=== PATIENT | female | born 1945 | race Caucasian/White ===

== ENCOUNTER 2019-09-26 12:56 | Inpatient (IN) | payer OTHER ==
[~2019-09-26] VITALS: Ht 152.4 cm; Wt 113.6 kg
[~2019-09-26 12:56] MED LIST: ACETAMINOPHEN325 M1 PO; ADVAIR HFA 115-12 GM IH; ALEVE220 MG PO; ASPIR 8181 MG PO; ASPIRIN325 PO; AUGMENTIN 875875 MG PO; CARDURA1 MG PO; CENTANY30 GM TP; CITRATE OF MAG296 ML PO; COLACE 100 MG100 MG PO; COLACE100 MG PO; COUMADIN 5 MG TA5 M1 PO; ENOXAPARIN30 MG/0.3 SQ; ENOXAPARIN40 MG/0.1 SUBQ; FIBER625 MG PO; FIBERCON625 M1 PO; GLUCOSAMINE &1 EAC1 PO; LASIX 20 MG TAB20 MG PO; LIPITOR40 MG PO; LOVENOX40 MG/0.4 SUBQ; MAGNESIUM CITR296 ML PO; METAMUCIL1 EAC1 PO; MILK OF MA2400 MG/10 PO; MOM PO; MULTI VITAMIN1 EACH PO; NEXIUM20 MG PO; NORCO 5-325 TA1 EACH PO; Nexium PO; OXYCODONE HCL 55 MG PO; PRAVACHOL40 MG PO; PRILOSEC40 MG PO; PROAIR HFA8.5 GM IH; PROAIR HFA8.5 GM INH; PROTONIX40 M2 PO; ROBAXIN 750 MG750 M1 PO; SENOKOT-S TABL1 EACH PO; TESSALON PERLE100 MG PO; ULTRAM 50MG TAB50 MG PO; VANCOMYCIN1 GM/250 M IV; VITAMIN C500 M1 PO; ZESTRIL10 MG PO; ZESTRIL40 MG PO; ZOFRAN ODT4 MG PO; ZOFRAN4 MG PO
[2019-09-26 13:05] VITALS: BP 118/101
[2019-09-26] MEDS ORDERED: DILTIAZEM ER180 M2 PO (13:14)
[2019-09-26] MEDS ORDERED: FUROSEMIDE 40 M40 MG PO (13:15)
[2019-09-26 13:32] LABS: ABSOLUTE BASOPHILS 0.1 thou/uL (0.0-0.2); ABSOLUTE EOSINOPHILS 0.3 thou/uL (0.0-0.7); ABSOLUTE LYMPHOCYTES 1.6 thou/uL (0.8-5.3); ABSOLUTE MONOCYTES 0.9 thou/uL (0.0-1.2); ABSOLUTE NEUTROPHILS 6.2 thou/uL (1.6-8.1); BASOPHILS 1.2 %; HEMATOCRIT 36.3 % (37.0-47.0); LYMPHOCYTES 17.3 %; MCH 28.3 pg (26.0-34.0); MCHC 33.1 g/dL (28.0-37.0); MCV 85.8 fL (80.0-100.0); MONOCYTES 9.5 %; MPV 8.5 fl. (7.2-11.1); NUCLEATED RBCS 0 /100WBC; PLATELET COUNT* 284 thou/uL (150-400); RBC 4.23 mil/uL (4.20-5.00); RDW-CV 13.5 % (10.5-14.5)
[2019-09-26 13:40] LABS: CALCIUM 8.9 mg/dL (8.5-10.1); CREATININE 1.5 mg/dL (0.6-1.3); POTASSIUM 4.9 mmol/L (3.5-5.1)
[2019-09-26 13:42] LABS: APTT 25.7 Seconds (25.0-31.3); INR 1.2; PROTIME 11.8 Seconds (9.20-11.50)
[2019-09-26 13:52] LABS: ALBUMIN 3.5 g/dL (3.4-5.0); TOTAL BILIRUBIN 0.4 mg/dL (<0.1-1.0); TOTAL PROTEIN 7.3 g/dL (6.4-8.2)
[2019-09-26 15:43] LABS: URINE BILIRUBIN NEGATIVE (Negative); URINE BLOOD NEGATIVE (Negative); URINE CLARITY CLEAR; URINE COLOR YELLOW; URINE GLUCOSE-RANDOM NEGATIVE (Negative); URINE KETONES NEGATIVE (Negative); URINE LEUKOCYTES-REFLEX NEGATIVE (Negative); URINE NITRITE-REFLEX NEGATIVE (Negative); URINE PROTEIN NEGATIVE (Negative); URINE SPECIFIC GRAVITY <= 1.005 (1.005-1.030); URINE UROBILINOGEN 0.2 E.U./dl (0.2-1.0)
[2019-09-26 21:00] VITALS: BP 139/90
[2019-09-26 21:04] VITALS: BP 133/94
[2019-09-26 23:00] VITALS: BP 114/61
[2019-09-27] VITALS: BP 114/61
[2019-09-27 04:00] VITALS: BP 109/53
[2019-09-27 05:24] LABS: HEMATOCRIT 32.9 % (37.0-47.0); MCH 28.3 pg (26.0-34.0); MCHC 33.4 g/dL (28.0-37.0); MCV 84.7 fL (80.0-100.0); MPV 8.3 fl. (7.2-11.1); NUCLEATED RBCS 0 /100WBC; PLATELET COUNT* 255 thou/uL (150-400); RBC 3.89 mil/uL (4.20-5.00); RDW-CV 13.6 % (10.5-14.5); WBC 8.3 thou/uL (4.0-11.0)
[2019-09-27 06:01] LABS: ANION GAP 10 mmol/L (7-16); BUN 29 mg/dL (7-18); CALCIUM 8.7 mg/dL (8.5-10.1); CHLORIDE 100 mmol/L (98-107); CO2 27 mmol/L (21-32); CREATININE 1.7 mg/dL (0.6-1.3); GLUCOSE 178 mg/dL (70-99); NT-PRO BRAIN NAT PEPTIDE 3623 pg/mL (<300); POTASSIUM 4.4 mmol/L (3.5-5.1); SODIUM 137 mmol/L (136-145); TROPONIN-I LEVEL <0.06 ng/mL (<0.06)
[2019-09-27 06:43] LABS: ABSOLUTE LYMPHOCYTES 0.3 thou/uL (0.8-5.3); ABSOLUTE MONOCYTES 0.1 thou/uL (0.0-1.2); ABSOLUTE NEUTROPHILS 7.9 thou/uL (1.6-8.1); ANISOCYTOSIS 1+; OVALOCYTES Occasional; PLATELET ESTIMATE ADEQUATE; POIKILOCYTOSIS 1+
[2019-09-27 08:00] VITALS: BP 130/70
[2019-09-27 09:23] VITALS: BP 130/70
--- NOTE | 2019-09-27 16:47 | EKG ---
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 : 1945 Requested By: Brennon Wright Order Number: [id number] MD: Armand Ngo Measurements Intervals [place] Rate: 149 P: 0 NE: 88 QRS: -77 QRSD: 134 T: 31 QT: 319 QTc: 503 Interpretive Statements Sinus tachycardia Right bundle branch block Baseline wander in lead(s) II Compared to ECG 07/18/2016 18:51:46 Sinus rhythm no longer present Left anterior fascicular block no longer present Electronically Signed On 09-27-2019 16:46:37 AVAYA ENGINEER by Armand Ngo [email or web address] <ELECTRONICALLY SIGNED> By: Armand Ngo MD, FACC 09/27/19 1646 1311 1311 Armand Ngo MD, FACC /EPI
--- NOTE | 2019-09-28 12:26 | EKG ---
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[place] : 1945 Requested By: Brennon Wright Order Number: [id number] MD: Azael Silverio Measurements Intervals [place] Rate: 122 P: MD: QRS: -60 QRSD: 134 T: 20 QT: 342 QTc: 488 Interpretive Statements Atrial fibrillation RBBB and LAFB Baseline wander in lead(s) II,III,aVF Compared to ECG 09/26/2019 13:11:24 rate has slowed Electronically Signed On 09-28-2019 12:25:34 MAMMOGRAPHY TECHNICIAN by Azael Silverio [email or web address] <ELECTRONICALLY SIGNED> By: Azael Silverio MD, FAC 09/28/19 1225 1312 1312 Azael Silverio MD, [facility] /EPI
== END 2019-09-27 12:05 | disposition left against medical advice (07) | DRG 177 ==
LOC: M.ERS 12:56 → M.TBA-ER 15:58 → M.2W 22:08
PROVIDERS: Family Medicine; ADMIT Internal Medicine
DX: J15.6 Pneumonia due to other Gram-negative bacteria (principal); I50.31 Acute diastolic (congestive) heart failure; J96.00 Acute respiratory failure, unspecified whether with hypoxia or hypercapnia; C18.9 Malignant neoplasm of colon, unspecified; J45.901 Unspecified asthma with (acute) exacerbation; I38 Endocarditis, valve unspecified; N17.9 Acute kidney failure, unspecified; I48.91 Unspecified atrial fibrillation; E78.00 Pure hypercholesterolemia, unspecified; I11.0 Hypertensive heart disease with heart failure; I35.0 Nonrheumatic aortic (valve) stenosis; M19.90 Unspecified osteoarthritis, unspecified site; Z79.82 Long term (current) use of aspirin; Z79.01 Long term (current) use of anticoagulants; Z95.2 Presence of prosthetic heart valve; Z95.1 Presence of aortocoronary bypass graft; Z98.42 Cataract extraction status, left eye; Z98.41 Cataract extraction status, right eye; Z79.899 Other long term (current) drug therapy; Z88.1 Allergy status to other antibiotic agents; Z88.5 Allergy status to narcotic agent; Z88.8 Allergy status to other drugs, medicaments and biological substances